=== PATIENT | male | born 1990 | race Caucasian/White ===

== ENCOUNTER 2019-02-12 09:52 | Outpatient (CLI) | payer OTHER ==
[2019-02-12] MEDS ORDERED: Iopamidol 370 76% 100 ML VIAL ONE (09:53)
--- NOTE | 2019-02-12 11:36 | CT ---
CT ABDOMEN AND PELVIS WITH CONTRAST: Date: 02/12/19 COMPARISON: None. HISTORY: Palpable mass in left inguinal region that patient noticed 3 weeks ago. Evaluate for inguinal hernia. TECHNIQUE: Multiple contiguous axial images were obtained in a CT of the abdomen and pelvis with contrast. Coron al reformats were performed. FINDINGS: The liver, gallbladder, kidneys, adrenal glands, spleen, and pancreas are unremarkable. No free air, free fluid, or stranding changes are seen in the abdomen or pelvis. The large and small bowel are unremarkable. The appendix is normal. No abdominal or pelvic lymphadeno jennifer seen. The abdominal wall soft tissues are unremarkable. No inguinal hernia is seen. No enlarged inguinal ly mph nodes are seen. The osseous structures and visualized inferior thorax are unremarkable. IMPRESSION: No significant abnormality. POS: ANIRUDH
== END 2019-02-12 09:53 | disposition home or self-care (01) ==
LOC: BICCT 09:52
DX: S39.011A Strain of muscle, fascia and tendon of abdomen, initial encounter (principal)
CPT/HCPCS: 74177; Q9967